=== PATIENT | male | born 1940 | race Caucasian/White ===

== ENCOUNTER 2019-03-06 16:51 | Emergency (ER) | payer MEDICARE, OTHER | END 2019-03-06 17:25 | disposition home or self-care (01) | LOC: SCSER 16:51 | DX: R19.7 Diarrhea, unspecified (principal); R11.2 Nausea with vomiting, unspecified; E11.9 Type 2 diabetes mellitus without complications; R42 Dizziness and giddiness | CPT/HCPCS: 99284 ==